=== PATIENT | male | born 1990 | race Caucasian/White ===

== ENCOUNTER 2018-07-28 10:50 | Emergency (ER) | payer SELFPAY ==
[2018-07-28] VITALS (11 sets, daily range): BP systolic 138–175; BP diastolic 61–108; PULSE 63–81; RESP 14–27; TEMP 36.6; O2SAT 95–100; BMI 29.9
--- NOTE | 2018-07-28 11:06 | RAD_ITS ---
STUDY: X-RAY - LEFT ELBOW REASON FOR EXAM: Male, 28 years old. Status post fall, pain. TECHNIQUE: 2 view(s) of the elbow. COMPARISON: None. FINDINGS: Posterior dislocation of the radius and ulna. Effusion. No definitive visualized fracture. RAD/Elbow 2 Views IMPRESSION: Elbow dislocation. Electronically Signed: James John MD at 12:03 EDT Tel , Service support ,
--- NOTE | 2018-07-28 11:18 | ED.DCSUM_ITS ---
- ER Visit Summary Date of Service: 07/28/18 Chief Complaint: Left arm injury History of Present Illness: The patient is a 28 M who slipped on a wet trailer and fell onto his left arm. He is not sure if he landed on the arm or if he put out to catch himself. He is complaining of pain around the elbow area. He denies paresthesias. He is right-hand dominant. Physical Examination: Vital signs significant for blood pressure of 162/106, otherwise unremarkable. Patient is sitting on the end of the bed. Head and neck examination was no sign of trauma. There is no C-spine tenderness. Heart is regular rate and rhythm. Lung sounds are clear. Abdomen is soft and nontender. Left upper extremity examination was moderate tenderness around the left elbow. He has decreased range of motion. There is no tenderness at the shoulder. He has strong distal pulses and can wiggle fingers. Sensation is intact. Test Results: Left elbow x-rays revealed dislocation with no evidence of fracture. Emergency Department Course and Treatment: Patient was initially given morphine and Zofran IM. Following x-rays test results were discussed with patient. He was consented for procedural sedation. He was sedated with propofol and I attempted elbow reduction. It felt as if there was something blocking the joint space and I was not able to get good reduction. Splint was applied and repeat x-rays were obtained. There is evidence of a fracture to the base of the coronoid that was not visible on the initial x-rays. Incomplete reduction is noted. I spoke with Dr. Yogesh Kaiser who reviewed the patient's x-rays. Dr. Kaiser presented to the emergency room. Patient was re-sedated with propofol. Dr. Kaiser also injected 10 cc of 2% lidocaine into the left elbow joint. Elbow was able to be reduced and was splinted in sugar tong splint plus posterior splint. Following splint application patient is able to wiggle fingers and has good cap refill distally. Repeat x-rays revealed good reduction. Patient will be referred to Dr. Coffey in [place] for follow-up per Dr. Kaiser. Treatment Plan: [] Disposition: Discharge Impression: 1. Left elbow dislocation status post reduction with coronoid fracture 2. Procedural sedation by ED physician This note was generated with [employer] software. It may contain incorrect words, spelling, and punctuation that were not noted in review of the chart prior to signing ED Disposition - Plan for ED Patient: Disposition: Home or Assisted Living Instructions: ED Dislocated Elbow, ED Fx Elbow Prescriptions: Oxycodone HCl/Acetaminophen [Percocet 5/325] 1 tablet PO Q6H PRN PRN 5 Days #20 tablet PRN Reason: Pain Referrals: Yogesh Kaiser MD [STAFF PHYSICIAN] - Additional Instructions: Follow-up with Dr Coffey in [place] as discussed. If Dr Coffey does not feel surgery is needed and you wish to follow-up locally, you can follow-up with Dr Kaiser.
[2018-07-28] MEDS: morphine 8 MG/ML Syringe IM (11:38)
[2018-07-28] MEDS: Ondansetron ODT 4 MG Tablet PO (11:38)
[2018-07-28] MEDS: 0.9% Normal Saline 1,000 ML 150 ML IV (12:46)
[2018-07-28] MEDS: Propofol 200 MG/20 ML Vial IV BOLUS ×2 (13:01→14:32)
--- NOTE | 2018-07-28 13:21 | RAD_ITS ---
STUDY: X-RAY - LEFT ELBOW REASON FOR EXAM: Male, 28 years old. Post reduction TECHNIQUE: 3 view(s) of the elbow. COMPARISON: X-ray oval 07/28/2017 at 1145 hours FINDINGS: Incomplete reduction. Persistent mild posterior inferior displacement of the radial head relative to the capitellum. Incomplete ulnotrochlear reduction. There is now apparent a fracture to the base of the coronoid process of the ulna. The humerus is perched on the fracture of the anterior joint margin. RAD/Elbow 2 Views IMPRESSION: Fracture through the base of the coronoid process of the ulna. Incomplete reduction. Electronically Signed: James John MD at 13:46 EDT Tel , Service support ,
[2018-07-28] MEDS: Morphine 4 MG/ML Syringe IV (14:30)
[2018-07-28] MEDS: Ondansetron 4 MG/2 ML Vial IV (14:34)
--- NOTE | 2018-07-28 16:40 | RAD_ITS ---
STUDY: X-RAY - LEFT ELBOW REASON FOR EXAM: Male, 28 years old. Post reduction. TECHNIQUE: 3 view(s) of the elbow. COMPARISON: None. FINDINGS: Fracture of the base of the ulnar coronoid process, which appears to be minimally distracted at this time. There is no complete reduction of the ulnotrochlear and radiocarpal articulations. There is no visible radial head fracture. There is no visible supracondylar fracture. Anterior sail sign consistent with the presence of effusion. RAD/Elbow 2 Views IMPRESSION: Successful reduction. Coronoid process fracture. Electronically Signed: James John MD at 17:49 EDT Tel , Service support ,
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
== END 2018-07-28 17:33 | disposition home or self-care (01) ==
PROVIDERS: Emergency Provider Emergency Medicine
DX: S52.042A Displaced fracture of coronoid process of left ulna, initial encounter for closed fracture (principal); W01.0XXA Fall on same level from slipping, tripping and stumbling without subsequent striking against object, initial encounter; Y93.01 Activity, walking, marching and hiking; Y92.029 Unspecified place in mobile home as the place of occurrence of the external cause; Y99.8 Other external cause status
CPT/HCPCS: 24675; 73070; 96361; 96374; 96375; 96376; 99152; 99284; J7030; A4216; J2405

== ENCOUNTER 2022-06-23 11:30 | Outpatient (RCR) | payer MEDICAID, SELFPAY ==
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
--- NOTE | 2022-06-11 07:13 | HP.OTREVAL ---
NATANAEL ROSSI, It has been my pleasure to treat CHUCK HERRING over the last 3 visits for R elbow dislocation/ Posteromedial Trochela fx, radial head fx coronoid fx. Please see the progress note below for an update on the occupational therapy plan of care! Subjective: pt arrives 4 weeks s/p from R elbow dislocation/ Posteromedial Trochela fx, radial head fx coronoid fx-. pt states he is trying to perform his exercise more than he was ( was only working elbow about 2x a day) now trying to work arm 4x a day - he is icing 2-4x a day now. Objective/Function: pt is wearing his HEB- daily to therapy- pt states he is performing his ex of elbow flexion/ext and forearm supination/pronation. and wrist ROM-. pt continues to have edema reports icing 4x a day-. elbow ROM at arrival. -50/90. following therapy. -50/110. pt making small gains in ROM and may benefit from dyn ROM elbow brace ( stata-dyne or michael) when allows to gain functional ROM. Plan Frequency: 1-2x /Week Duration: 2 Months Plan: cont. to increase pts ROM Goals - Goals Patient Goals: Regain Mobility, Regain Strength, Decrease Swelling/Stiffness, Increase ROM, Be More Independent in ADLS Goal:100% adherence to protocol: Yes Goal:Daily scar massage when approriate: Yes Goal:ROM equal to unaffected hand: Yes Goal:Dynamometer Tuner/Pinch strength at least 75% of unaffected hand: Yes Goal:No pain with affected hand use: Yes Goal:Full use of affected hand in daily activities including: Yes Goal:Decrease scar hypersensitivity: Yes Anticipated Interventions Anticipated Interventions: A/AAROM/PROM, Strengthening, Edema Control, Scar Care, Triggerpoint Release, Modalities, Orthoses, Joint Protection/Energy Conservation, Ergonomic Education, Education re assistive Equipment, Education re Diagnosis, Caregiver Training, Home Program Please do not hesitate to contact me at [phone] by phone or if you have questions or concerns regarding this new plan of care! Sincerely, An Fields, OTR/L, CHT
--- NOTE | 2022-11-03 14:20 | HP.OT.NRP ---
Patient Information Patient Information: CHUCK HERRING was seen in my office for initial evaluation on 06/01/22. The following Plan of Care was established for this patient: POC Established Initial Frequency: 1-2x /Week Initial Duration: 2 Months Plan: cont. to increase pts ROM Anticipated Interventions Anticipated Interventions: A/AAROM/PROM, Strengthening, Edema Control, Scar Care, Triggerpoint Release, Modalities, Orthoses, Joint Protection/Energy Conservation, Ergonomic Education, Education re assistive Equipment, Education re Diagnosis, Caregiver Training and Home Program Last Seen Last Seen: This patient was last seen in our office 06/23/22. Pertinent comments regarding their Occupational therapy will appear below: pt was seen for 6 OT session for right ORIF of elbow. pt was making some progress but wanted to return to work. Due to time lapse in care pt d/c at this time. At this point I will be discontinuing this patient from occupational therapy. I would be happy to see this patient again in the future if found appropriate by the physician. Thank you! An Fields, OTR/L, CHT
== END 2022-06-23 19:00 | disposition home or self-care (01) ==
LOC: OT 11:30
DX: S42.401D Unspecified fracture of lower end of right humerus, subsequent encounter for fracture with routine healing (principal)
CPT/HCPCS: 97110; 97140; 97166; 97760

== ENCOUNTER 2022-10-11 15:59 | Emergency (ER) | payer MEDICAID, SELFPAY ==
[2022-10-11 16:00] VITALS: BP 134/89; PULSE 67; RESP 14; TEMP 36.6; O2SAT 98; BMI 30.2
--- NOTE | 2022-10-11 17:53 | ED.VIS.LOWEX ---
HPI History of Present Illness HPI Narrative: Patient presents with left knee pain that began today. Patient states she stepped in a hole and felt a pop in his knee. Patient is concerned because he had prior surgery on his left tibia from a fracture. Patient describes his pain as aching and burning. Patient states his pain is worse with movement and better with rest. Patient denies any paresthesias or weakness. Patient denies any other injuries. Chief Complaint: Lower Extremity Injury Informant: patient Onset/Context/Timing Onset: Today Context: Sudden Onset Timing: Continuous Quality of Pain: Aching and Burning Location: Left knee Worsened by: Movement Relieved by: Rest Associated Symptoms Associated Symptoms: Negative for Parasthesia, Weakness or Loss of Funtion PFSH PFSH Medical History no medical history no medical history Allergy/AdvReac Type Severity Reaction Status Date / Time No Known Allergies Allergy Verified 10/11/22 16:00 Surgical History (Updated 10/11/22 @ 19:[address] Sadi Bar DO) S/P ORIF (open reduction internal fixation) fracture Social History Smoking Status: Never smoker ROS ROS ED Constitutional Constitutional ED: Denies chills or fever(s) Eyes Eyes: Denies blurry vision or change in vision ENT ENT ED: Denies rhinorrhea or sore throat Cardiovascular Cardiovascular: Denies chest pain or palpitations Respiratory/Chest Respiratory/Chest: Denies cough or dyspnea Gastrointestinal Gastrointestinal: Denies nausea or vomiting Genitourinary Genitourinary ED: Denies dysuria or hematuria Musculoskeletal Musculoskeletal: Denies back pain or neck pain Integumentary Denies abscess or rash Neurologic Neurologic: Denies headache(s) or weakness Allergic/Immunologic Allergic/Immunologic ED: Denies mouth swelling or urticaria EXAM Physical Exam Const Vital Signs: 10/11/22 16:00 Temperature 98 F Temperature Source Temporal Pulse Rate 67 Respiratory Rate 14 Blood Pressure 134/89 H Blood Pressure Mean 104 Pulse Ox 98 Oxygen Delivery Method Room Air Positive well nourished and well developed General Appearance ED: well developed and NAD HEENT Reports moist mucous membranes Neck full ROM and supple Extremity Extremity Narrative: There is tenderness over the left knee. There is a questionable effusion noted. Range of Motion was limited in flexion of the left knee secondary to pain. Varus and valgus stress test were negative. There is pain over the joint line with Peter testing. Yunier's test was negative. Strength is 5/5 bilaterally in the lower extremities. There are no sensory deficits noted. Pedal pulses are equal bilaterally. Neuro oriented x3, CN's II-XII intact bilaterally, moves all extremities and no sensory deficits noted Sensorium / Orientation: alert Motor Exam: strength 5/5 throughout Psych mental status grossly normal MDM MDM Radiography Diagnostic Testing: Clinical Impression(s) from Imaging Studies Knee X-Ray 10/11/22 18:07 IMPRESSION: Small joint effusion. No evidence of acute fracture. ORIF old tibial fracture. Electronically Signed: Jyoti Byrne MD at 19:12 EDT , X-rays of the left knee were obtained. There are 4 views. On my independent interpretation, there is no acute fracture or loose body noted. There is prior hardware in place from previous ORIF from tibial fracture. Radiologist also interpreted the x-rays and agrees. Treatment and Re-Evaluation Narrative: Patient was advised of his findings. Patient was instructed to ice and elevate the left knee. Patient was instructed to follow-up with his primary care physician and orthopedic surgeon in 5 to 7 days for further evaluation. Patient was instructed take Tylenol or ibuprofen as needed for pain. Patient understood and was agreeable with the plan. All questions were answered. Discharge Plan Triage Chief Complaint: Lower Extremity Injury ED Provider: Sadi Bar Dx/Rx/DC Orders Clinical Impression: Left knee sprain Instructions: ED Knee Sprain Primary Care Provider: Care Physician,No Primary Referrals: Care Physician,No Primary [Primary Care Provider] - 5-7 Days Disposition Disposition: Home, Self Care
--- NOTE | 2022-10-11 18:07 | RAD_ITS ---
INDICATION: Injury/Pain EXAMINATION/TECHNIQUE: X-RAY - LEFT XR Knee Complete 4 Views or More 4 VIEWS COMPARISON: FINDINGS: BONES: Surgical hardware in the proximal tibia with metallic plate and side screws transfixing an old proximal tibial fracture. No acute fracture demonstrated. JOINTS: No dislocation. SOFT TISSUES: Small joint effusion. Anterior soft tissue swelling. RAD/Knee 4 or More Views IMPRESSION: Small joint effusion. No evidence of acute fracture. ORIF old tibial fracture. Electronically Signed: Jyoti Byrne MD at 19:12 EDT ,
== END 2022-10-11 19:55 | disposition home or self-care (01) ==
PROVIDERS: Emergency Provider Emergency Medicine; Visit Provider Emergency Medicine
DX: S83.92XA Sprain of unspecified site of left knee, initial encounter (principal); X58.XXXA Exposure to other specified factors, initial encounter
CPT/HCPCS: 73564; 99282

== ENCOUNTER 2022-11-11 10:44 | Emergency (ER) | payer MEDICAID, SELFPAY ==
[2022-11-11 10:44] VITALS: BP 135/95; PULSE 60; RESP 14; TEMP 36.3; O2SAT 97; BMI 32.5
--- NOTE | 2022-11-11 11:02 | EX.ED.GENINJ ---
HPI <ARGELIA Cintron - Last Filed: 11/11/22 12:51> History of Present Illness Chief Complaint: Laceration Narrative Narrative: Patient presenting today due to a laceration to the posterior aspect of his left elbow that he got earlier today while he was at work. 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 He did not hit his elbow on the blade. He denies hitting his head. He thinks that he might have passed out after it happened but reports that he is feeling well now. He does not feel lightheaded, there is no dizziness, chest pain, shortness of breath, abdominal pain, nausea, or vomiting. He does not take any blood thinners. He is unsure of his last tetanus immunization. He denies any other injury. PFSH <ARGELIA Cintron - Last Filed: 11/11/22 12:51> [facility] Home Medications cephalexin 500 mg capsule 500 mg PO Q6 #40 CAPSULES 11/11/22 [Rx Last Taken Unknown] Allergy/AdvReac Type Severity Reaction Status Date / Time No Known Allergies Allergy Verified 11/11/22 10:46 Surgical History S/P ORIF (open reduction internal fixation) fracture Social History Smoking Status: Never smoker ROS <ARGELIA Cintron - Last Filed: 11/11/22 12:51> ROS ED Constitutional Constitutional ED: Denies chills or fever(s) Eyes Eyes: Denies change in vision Cardiovascular Cardiovascular: Denies chest pain or palpitations Respiratory/Chest Respiratory/Chest: Denies cough or dyspnea Gastrointestinal Gastrointestinal: Denies abdominal pain, nausea or vomiting Musculoskeletal Musculoskeletal: Denies arthralgias, back pain, myalgias or neck pain Integumentary Reports laceration Neurologic Neurologic: Denies paresthesias or weakness EXAM <ARGELIA Cintron - Last Filed: 11/11/22 12:51> Physical Exam Const Vital Signs: 11/11/22 10:44 11/11/22 12:13 Temperature 97.3 F L Temperature Source Temporal Pulse Rate 60 Respiratory Rate 14 16 Blood Pressure 135/95 H Blood Pressure Mean 108 Pulse Ox 97 Oxygen Delivery Method Room Air Positive well nourished, well developed and no apparent distress General Appearance ED: well developed HEENT Reports normocephalic and head/scalp atraumatic Mouth ED: Yes moist mucous membranes normal Eyes PERRL and EOMs intact bilaterally Neck full ROM and supple Chest Wall inspection of chest normal Resp normal respiratory effort and clear to auscultation bilaterally Cardio regular rate and regular rhythm GI soft to palpation, non-tender, non-distended and no masses Back/Spine normal ROM and normal to inspection Extremity full ROM Extremity Narrative: two macerated subcutaneous lacerations to the posterior left elbow. Both are 3 cm. One small puncture wound. Radial pulses 2+ and equal bilaterally, good capillary refill, sensation intact. Full range of motion to the left elbow without any pain to palpation. Neuro oriented x3, CN's II-XII intact bilaterally, moves all extremities, no focal motor deficits and no sensory deficits noted Sensorium / Orientation: awake and alert Motor Exam: strength 5/5 throughout Psych mental status grossly normal and thought process normal <Dr. Sadi Bar, DO - Last Filed: 11/11/22 11:15> Physical Exam Const Vital Signs: 11/11/22 10:44 11/11/22 12:13 Temperature 97.3 F L Temperature Source Temporal Pulse Rate 60 Respiratory Rate 14 16 Blood Pressure 135/95 H Blood Pressure Mean 108 Pulse Ox 97 Oxygen Delivery Method Room Air PROC <ARGELIA Cintron - Last Filed: 11/11/22 12:51> Procedures Lacerations Laceration: Length: 6 cm Depth: Sub Q Shape: Linear Prep: Chlorhexadine Laceration repair: Irrigated, Lidocaine with epi and Wound explored Irrigated (ml): 300 Number of Sutures/Chaseley: 10 Suture Information: Ethilon (4-0) MDM <ARGELIA Cintron - Last Filed: 11/11/22 12:51> [facility] Narrative Medical decision making narrative: Patient presenting today with a laceration to the posterior aspect of his left elbow that he got this morning while at work. There are two separate lacerations that are 3cm in length. He was on a riding mower when he hit a tree and fell off and hit his elbow on the side of the mower. He did not hit his head or the blades of the mower. he reports that he might have passed out after the incident but is feeling well now. Tetanus will be updated. Laceration will be copiously irrigated and cleaned, sutured and patient, will be bandaged with bacitracin ointment. He will be started on Keflex and has been given strict return instructions. He will be discharged home in stable condition and is comfortable with plan. <Dr. Sadi Bar, DO - Last Filed: 11/11/22 11:15> [facility] Treatment and Re-Evaluation Narrative: I have personally performed a face to face assessment of the patient and have reviewed the GEORGINA Note. I performed a substantive portion of the visit including all aspects of the following. My alejandro findings include: History: Patient presents with laceration to his left elbow that occurred today. Patient states he fell off of his standing lawnmower and hit his left elbow on the side of the mower. Patient states the blades were not turning when he hit the mower. Patient states he did pass out but denies any head injury. Patient denies any paresthesias or weakness. Patient is unsure of his last tetanus. Patient denies any other injuries. Exam: Vital signs are stable. Patient is afebrile. Patient is in no acute distress. Cranial nerves II through XII are intact. There are no focal motor or sensory deficits noted. There is good range of motion of the left elbow. There are 2 lacerations over the posterior aspect of the left elbow. There is also a another small puncture wound. There is moderate gapping of the wound margins. There are no foreign bodies noted. There is no active bleeding noted. Strength is 5/5 in the radial, median, and ulnar areas. Sensation was intact to light touch in the radial, median, and ulnar areas. Radial pulses are equal bilaterally. Medical Decision Making: Patient was given a tetanus booster. I do not feel the patient needs x-rays at this time. The wound was cleaned and irrigated with copious amounts normal saline. The wound was repaired by the GEORGINA under my supervision. Patient tolerated procedure well. Patient was instructed to keep the wound clean and dry. Patient was given a prescription for Keflex. Patient was given his first dose here. Patient was instructed to return if worse in any way. Patient understood and was agreeable with the plan. All questions were answered. Discharge Plan Triage Chief Complaint: Laceration ED Midlevel Provider: Cheri Dallas ED Provider: Sadi Bar Dx/Rx/DC Orders Clinical Impression: Fall, Laceration of left elbow Instructions: ED Laceration Extremity Prescriptions: New cephalexin [cephalexin] 500 mg capsule 500 mg PO Q6 Qty: 40 0RF Primary Care Provider: Care Physician,No Primary Referrals: Care Physician,No Primary [Primary Care Provider] - [facility] [Non-Staff] - 7 Days for suture removal Activity Restrictions/Additional Instructions: Please follow-up to have sutures removed in 10 to 14 days. Return for any signs of infection. Keep area clean and covered. Disposition Disposition: Home, Self Care Discharge Date/Time: 11/11/22 12:15
[2022-11-11] MEDS: Diphth,Pertuss(Acell),Tet Vac 0.5 ML Vial IM (11:12)
[2022-11-11] MEDS: Lidocaine 1% /Epi 1:100 (20ml) 20 ML Vial 10 ML INFILT (11:13)
[2022-11-11] MEDS: Cephalexin 500 MG Capsule PO (12:12)
[2022-11-11 12:13] VITALS: RESP 16
== END 2022-11-11 12:15 | disposition home or self-care (01) ==
PROVIDERS: Emergency Provider Emergency Medicine; Visit Provider Emergency Medicine
DX: S51.012A Laceration without foreign body of left elbow, initial encounter (principal); W26.8XXA Contact with other sharp object(s), not elsewhere classified, initial encounter; Y93.H2 Activity, gardening and landscaping; Y99.0 Civilian activity done for income or pay; Z23 Encounter for immunization
CPT/HCPCS: 12002; 90471; 90715; 99284